=== PATIENT | male | born 1955 | race American Indian/Alaskan Native ===

== ENCOUNTER 2019-05-01 20:13 | Emergency (ER) | payer SELFPAY ==
--- NOTE | 2019-05-01 20:49 | Emergency Department Report ---
Chief Complaint: Wound/Laceration Stated Complaint: LACERATION, LEFT HAND 3RD FINGER - HPI History of Present Illness: 64yo BM states that he cut his R 3rd fingertip earlier today. He states that he is not up to date on his Tetanus shot. MSE screening note: Focused history and physical exam performed. Due to findings the following was ordered: ED Disposition for MSE Condition: Stable
[2019-05-01] MEDS ORDERED: IBUPROFEN 600 MG TAB PO ONE (22:14)
[2019-05-01] MEDS ORDERED: LIDOCAINE-MPF (1%) 10 MG/1 ML VIAL 5 ML INFILTRATI ONE (22:14)
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
== END 2019-05-02 | disposition left against medical advice (07) ==
LOC: ED 20:13
DX: S61.313A Laceration without foreign body of left middle finger with damage to nail, initial encounter (principal); F17.200 Nicotine dependence, unspecified, uncomplicated; F12.10 Cannabis abuse, uncomplicated; Z98.890 Other specified postprocedural states; W26.8XXA Contact with other sharp object(s), not elsewhere classified, initial encounter; Y93.89 Activity, other specified; Y92.89 Other specified places as the place of occurrence of the external cause; Y99.8 Other external cause status